=== PATIENT | female | born 1955 | race Hispanic/Latino ===

== ENCOUNTER 2017-06-27 09:30 | Outpatient (CLI) | payer OTHER ==
--- NOTE | 2017-06-27 10:23 | XRay Report ---
Right knee: Pain. There is a total knee replacement which appears well applied to the respective surfaces. There is no evidence of loosening or other lytic change. Subchondral scalloping is noted on the posterior patella with narrowing of the retropatellar space. The bony structures appear well mineralized. There is normal alignment. There is no effusion nor swelling identified. No prior exam for comparison. Impression: 1. No apparent complication of the prosthesis. 2. Degenerative retropatellar changes.
== END 2017-06-27 09:31 | disposition home or self-care (01) ==
LOC: SPVIMAG 09:30
PROVIDERS: ATTEND Orthopaedic Surgery Sports Medicine
DX: M17.11 Unilateral primary osteoarthritis, right knee (principal); Z96.651 Presence of right artificial knee joint

== ENCOUNTER 2017-09-03 08:41 | Outpatient (CLI) | payer OTHER ==
--- NOTE | 2017-09-03 09:37 | XRay Report ---
XRAY RIGHT KNEE 4 THREE VIEWS: 09/03/17 CLINICAL: Knee pain. FINDINGS: Status post total joint replacement with normal appearance of the prosthesis. No apparent loosening. Moderate osteopenia. No fracture or dislocation. Mild opacification of the suprapatellar bursa suggesting a small joint effusion.Normal soft tissues. IMPRESSION: Suspect small joint effusion. Status post total knee replacement.
== END 2017-09-03 08:42 | disposition home or self-care (01) ==
LOC: SPVIMAG 08:41
PROVIDERS: ATTEND Orthopaedic Surgery Sports Medicine
DX: M85.861 Other specified disorders of bone density and structure, right lower leg (principal); Z96.651 Presence of right artificial knee joint